=== PATIENT | female | born 1985 | race Caucasian/White ===

== ENCOUNTER 2017-12-24 07:31 | Emergency (ER) | payer OTHER ==
[~2017-12-24] VITALS: Ht 162.6 cm; Wt 83.9 kg
[~2017-12-24 07:31] MED LIST: ATIVAN1 MG PO
[2017-12-24] MEDS ORDERED: DIVALPROEX SOD250 M3 PO (08:23)
[2017-12-24] MEDS ORDERED: CLONAZEPAM0.5 M2 PO (08:24)
[2017-12-24] MEDS ORDERED: PREDNISONE20 M1 PO (08:47)
[2017-12-24] MEDS ORDERED: BENADRYL ALLERG25 M2 PO (08:47)
[2017-12-24] MEDS ORDERED: PEPCID20 M1 PO (08:47)
--- NOTE | 2017-12-24 08:48 | ED SKIN/ALLERGY COMPLAINT ---
History of Present Illness General Chief Complaint: Skin Rash/ Abcess Stated Complaint: RASH ON HANDS AND ANKLES Source: patient, old records, friend Exam Limitations: no limitations Vital Signs & Intake/Output Vital Signs & Intake/Output Vital Signs Date Time Temp Pulse Resp B/P B/P Pulse O2 O2 Flow FiO2 Mean Ox Delivery Rate 12/24 0830 99 Room Air 12/24 0736 97.5 74 14 127/82 98 Room Air Allergies Coded Allergies: divalproex sodium (From DEPAKOTE) (SKIN RASH 12/24/17) Reconcile Medications Clonazepam 0.5 MG TABLET 1 TAB PO DAILY UNKNOWN (Reported) Divalproex Sodium (Divalproex Sodium ER) 250 MG TAB.ER.24H 1 TAB PO QPM UNKNOWN (Reported) Triage Note: PT PRESENTS TO THE ER WITH A RASH ON HANDS AND FEET/ANKLES. RASH ARE 1 CM DIAMETER CIRCLES. PT STATES THAT THEY ITCH. ONSET 2 DAYS AGO ITCHING BUT THE RASH APPEARED THIS MORNING. Triage Nurses Notes Reviewed? yes Onset: several days Duration: day(s):, constant, continues in ED, getting worse Timing: recent history Severity: moderate Location: extremities Possible Factors: exposure to allergen, medications Modifying Factors: Improves With: antihistamine, scratching. Associated Symptoms: change in skin texture, edema (eyes), rash LMP (ages 10-50): unknown : No Patient currently breastfeeds: No HPI: 1 month prior to admission patient started Depakote at night. Several days prior to admission she complains of bilateral hand itching. Yesterday her eyes were puffy and she took Zyrtec improvement in swelling. Upon awakening she noticed circular rash to palms dorsal hands and on ankles. She denies fever chills nausea vomiting diarrhea abdominal pain chest pain shortness of breath headache dysuria bleeding new soap shampoo detergent over- the-counter medications. Past History Travel History Traveled to [place] past 21 day No Medical History Any Pertinent Medical History? see below for history Neurological: NONE EENT: NONE Cardiovascular: NONE Respiratory: asthma Gastrointestinal: NONE Hepatic: NONE Renal: NONE Musculoskeletal: NONE Psychiatric: anxiety Endocrine: NONE Surgical History Surgical History: non-contributory Psychosocial History What is your primary language Greenlandic Tobacco Use: Never used Family History Hx Contributory? No Review of Systems Review of Systems Constitutional: Reports: no symptoms. EENTM: Reports: no symptoms. Respiratory: Reports: no symptoms. Cardiovascular: Reports: no symptoms. GI: Reports: no symptoms. Genitourinary: Reports: no symptoms. Musculoskeletal: Reports: no symptoms. Skin: Reports: see HPI, rash. Neurological/Psychological: Reports: no symptoms. Hematologic/Endocrine: Reports: no symptoms. Immunologic/Allergic: Reports: no symptoms. All Other Systems: Reviewed and Negative Physical Exam Physical Exam General Appearance: well developed/nourished, alert, awake, anxious, mild distress Head: atraumatic, normal appearance Eyes: Bilateral: normal appearance, PERRL, EOMI. Ears, Nose, Throat: normal pharynx, normal ENT inspection, hearing grossly normal Neck: normal inspection, supple, full range of motion, no midline tenderness Respiratory: normal breath sounds, chest non-tender, no respiratory distress, quiet respiration, lungs clear Cardiovascular: regular rate/rhythm, normal peripheral pulses, norml femoral pulses equa Peripheral Pulses: 4+ carotid (R), 4+ carotid (L) Gastrointestinal: normal bowel sounds, soft, non-tender, no organomegaly Back: normal inspection, normal range of motion, no vertebral tenderness Extremities: normal capillary refill, normal range of motion, no edema Neurologic/Psych: no motor/sensory deficits, awake, alert, oriented x 3, normal gait, normal mood/affect, 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 Skin: intact, rash Skin Problem Location: upper extremities (palms dorsal hand ankles) Skin Problem Character: intact, erythema, macules, papules, patchy, rash, urticarial Lymphatic: no anterior cervical aleida Progress Differential Diagnosis: abscess/cellulitis, allergic reaction, contact dermatitis, drug reaction Plan of Care: Steroids pepcid benadryl Departure Departure Time of Disposition: 845 Disposition: HOME OR SELF CARE Condition: Stable Clinical Impression Primary Impression: Allergic drug reaction Referrals: Efrani PERRY,Chen Hair (PCP/Family) Additional Instructions: Stop depakote and let your prescriber know of your reaction. Departure Forms: Customer Survey General Discharge Information Prescriptions: Current Visit Scripts Prednisone 1 TAB PO BID #10 TAB Famotidine (Pepcid) 1 TAB PO BID #10 TAB Diphenhydramine HCl (Benadryl Allergy) 1-2 TAB PO Q6P PRN itchy rash #30 TAB Ref 1 ED Attending Observation Initial Observation Note: I have seen and personally examined TIGIST DILLON on 12/24/17 at 0845. I agree with the current emergency department documentation. The disposition (admission or discharge) is uncertain at this time, she needs a period of observation for the following reason(s): The ED Nurse caring for this patient has been personally informed as to what the patient is being observed for.
[2017-12-24 09:15] VITALS: BP 124/84
== END 2017-12-24 09:16 ==
LOC: ERH 07:31
DX: T50.991A Poisoning by other drugs, medicaments and biological substances, accidental (unintentional), initial encounter (principal)
CPT/HCPCS: 96374; 96375; J1200; J2930